=== PATIENT | female | born 1975 | race Caucasian/White ===

== ENCOUNTER 2018-07-06 11:57 | Emergency (ER) | payer OTHER ==
[~2018-07-06] VITALS: Ht 157.5 cm; Wt 65.8 kg
[2018-07-06 12:02] VITALS: Ht 157.5 cm; Wt 65.8 kg
[2018-07-06 12:43] VITALS: BP 170/90
== END 2018-07-06 12:43 | disposition home or self-care (01) ==
LOC: ED 11:57
DX: F41.0 Panic disorder [episodic paroxysmal anxiety] (principal); R06.4 Hyperventilation